=== PATIENT | female | born 1990 | race Hispanic/Latino ===

== ENCOUNTER 2019-01-01 03:28 | Observation (INO) | payer OTHER, SELFPAY ==
[2019-01-01 04:24] LABS: ALT (SGPT) 26 U/L (8-55); AST (SGOT) 35 U/L (5-34); Acetaminophen Less than 6.0 mcg/mL (10.0-30.0); Albumin 3.8 g/dL (3.5-5.0); Alcohol 66 mg/dL (Less than 10); Alkaline Phosphatase 94 U/L (40-150); Anion Gap 11 mmol/L (10-20); BUN (Urea Nitrogen) Less than 4 mg/dL (7.0-18.7); Bilirubin, Total 0.3 mg/dL (0.2-1.2); Calc. Creatinine Clearance 0 mL/min (70-130); Calcium 8.4 mg/dL (7.8-10.44); Carbon Dioxide 31 mmol/L (22-29); Chloride 103 mmol/L (98-107); Estimated GFR-MDRD Greater than 90; Globulin 2.5 g/dL (2.4-3.5); Glucose 149 mg/dL (70-105); Protein, Total 6.3 g/dL (6.0-8.3); Salicylate Less than 8.0 mg/dL (15.0-30.0); Sodium 142 mmol/L (136-145)
[2019-01-01 05:00] LABS: Bilirubin Negative (Negative); Blood, Urine Negative (Negative); Clarity Clear (Clear); Glucose, Urine (Dipstick) 500 mg/dL (Negative); Leukocyte Negative Leu/uL (Negative); Nitrite Negative (Negative); Protein, Urine (Dipstick) Negative (Neg-Trace); Urobilinogen Normal mg/dL (Less than 2)
[2019-01-01] MEDS ORDERED: Potassium Chloride 20 MEQ TAB ONE (05:00)
[2019-01-01 05:11] LABS: Amphetamine Not Detected (NotDetected); Barbiturates Screen Not Detected (NotDetected); Benzodiazepine Screen Not Detected (NotDetected); Cocaine Metabolite Screen Not Detected (NotDetected); Medtox Control Line Valid? VALID (VALID); Medtox Reader # READER 1; Methadone Not Detected (NotDetected); Methamphetamine Not Detected (NotDetected); Opiate Screen Not Detected (NotDetected); Oxycodone Screen Not Detected (NotDetected); Phencyclidine (PCP) Not Detected (NotDetected); THC/Cannabinoid Screen Not Detected (NotDetected); Tricyclic Screen Detected (NotDetected)
[2019-01-01 10:10] VITALS: BMI 26.3
[2019-01-01] MEDS: Multivitamins, Adult 10 ML, Thiamine HCl 100 MG, Folic Acid 1 MG in Dextrose 5 %-0.45 %... IV SCH (10:57)
[2019-01-01 12:06] LABS: #Lymphocytes 1.2 thou/uL (1.20-3.40); #Monocytes 0.3 thou/uL (0.11-0.59); #Neutrophils 2.1 thou/uL (1.40-6.50); %Basophils 0.8 % (0.0-1.0); %Eosinophils 0.8 % (0.0-10.0); %Monocytes 7.6 % (0.0-10.0); %Neutrophils 57.8 % (42.0-75.0); Hemoglobin 13.8 g/dL (12.0-16.0); Mean Corpuscular HGB CONC 34.1 g/dL (32.0-36.0); Mean Corpuscular Hemoglobin 35.2 pg (27.0-31.0); Platelet Count 135 thou/uL (130-400); RBC Distribution Width 12.1 % (11.5-14.5); Red Blood Cell (RBC) Count 3.91 mill/uL (4.20-5.40); White Blood Cell (WBC) Count 3.7 thou/uL (4.8-10.8)
[2019-01-01] MEDS: 1/2 NS w/KCL 20 mEq 1,000 ML IV SCH ×2 (12:09→19:55)
[2019-01-01 12:39] LABS: Anion Gap 9 mmol/L (10-20); BUN (Urea Nitrogen) Less than 4 mg/dL (7.0-18.7); Calc. Creatinine Clearance 135 mL/min (70-130); Calcium 8.1 mg/dL (7.8-10.44); Carbon Dioxide 27 mmol/L (22-29); Chloride 106 mmol/L (98-107); Estimated GFR-MDRD Greater than 90; Glucose 81 mg/dL (70-105); Magnesium 1.6 mg/dL (1.6-2.6); Potassium 3.9 mmol/L (3.5-5.1); Sodium 138 mmol/L (136-145)
[2019-01-01] MEDS ORDERED: Ondansetron ODT 4 MG TAB PO PRN (12:55)
[2019-01-01] MEDS ORDERED: Ondansetron PF 4 MG/2 ML Vial IVP PRN (12:55)
--- NOTE | 2019-01-01 14:40 | HP ---
PRIMARY CARE PHYSICIAN: None. CHIEF COMPLAINT: Overdose. HISTORY OF PRESENT ILLNESS: Ms. Sutton is a 28-year-old female, who has no past medical history, who presented to [facility] after being transferred to an outside [place] [facility] after she ingested 22 cyclobenzaprine 10 mg approximately 15 to 20 minutes prior to arriving late last night. She states that she was just trying to sleep. She had denied any fever, chills, any headache, blurred vision, dizziness, any chest pain, palpitations, shortness of breath, abdominal pain, nausea, or vomiting. She did report drowsiness and some lethargy, however, otherwise no further complaints. Poison Control was also consulted late last night and the patient was given 100 mg of activated charcoal, 1 L of normal saline, and 3 amps of bicarb along with maintenance fluids of 100 mL an hour of D5 with KCl. Poison Control recommended monitoring the patient for tachycardia, hypotension, possible delusions and also possible hallucinations. It was also recommended to watch for prolonged QRS and possible seizures. The patient's lab work indicated that the potassium had also dropped to 3.0, however, repeat had normalized at 3.9. Her drug screen detected tricyclics and a plasma alcohol level of initial 163 and this had trended down to 66 earlier this morning. Her other lab work was essentially normal and a consult was placed for [facility] for further evaluation. The patient reports going through a stressful time in her life and for the past month has had conflicts with several people, however, had no intention on harming herself and that she had taken the pills just to try to sleep. REVIEW OF SYSTEMS: All other systems reviewed and found to be negative unless mentioned in the HPI. PAST MEDICAL HISTORY: None. PAST SURGICAL HISTORY: None. PAST PSYCHIATRIC HISTORY: None. SOCIAL HISTORY: The patient reports drinking socially. She also uses tobacco and states that she smokes about a half pack when she is drinking alcohol. She had also denied any further illicit drug use. KNOWN ALLERGIES: No known drug allergies. CURRENT HOME MEDICATIONS: None. PHYSICAL EXAMINATION: VITAL SIGNS: BP 106/57, pulse 78, respirations 16, temperature 98.5, O2 saturation 98% on room air. GENERAL: The patient is calm, awake, alert, and oriented x3. She appears drowsy and some mild lethargy. She is lying comfortably in bed with her boyfriend at her side and appears in no acute distress at this time. HEENT: Atraumatic and normocephalic. Pupils are round and reactive to light. Extraocular muscles are intact. Moist mucous membranes noted. NECK: Soft and supple. Trachea is midline. CARDIOVASCULAR: Positive S1 and S2. Regular rate and rhythm. No murmur auscultated. RESPIRATORY: Clear to auscultation bilaterally. No wheezes, rales, or rhonchi. ABDOMEN: Soft and nontender. Bowel sounds present. MUSCULOSKELETAL: Strength 5+ bilaterally in upper and lower extremities. Moves all extremities equal. No edema noted. NEUROLOGIC: Cranial nerves 2 through 12 grossly intact. No focal deficits noted. Speech intact and normal. Gait not assessed. SKIN: Warm, dry, and intact. No rashes. No ulceration noted. PSYCHIATRIC: Good mood and affect. However, the patient appears quite drowsy at times. LABORATORY DATA: WBC 3.7, RBC 3.91, hemoglobin 13.8, platelet 135. Sodium 138, potassium 3.9, anion gap 9, BUN less than 4, creatinine 0.74, estimated GFR greater than 90, glucose 81, calcium 8.1, magnesium 1.6. TSH 2.6203. Urinalysis showed 500 glucose, otherwise unremarkable. Toxicology screen early this morning detected tricyclics with a plasma alcohol of 66. DIAGNOSTIC IMAGING: None. ASSESSMENT AND PLAN: 1. Overdose on cyclobenzaprine. She had received proper treatment with activated charcoal, 1 L of normal saline, and 3 amps of bicarb along with maintenance fluids of D5 with KCl. Poison Control was also consulted by the [place] [facility], which had recommended to monitor the patient for tachycardia, hypotension, possible delusions and/or hallucinations along with any further EKG changes with prolonged QRS and possible seizures. The patient appears to be slightly drowsy and lethargic at times. She will be placed on suicidal precautions along with a sitter. A consult was placed for [facility] who will possibly come and meet with the patient in the morning. 2. Deep venous thrombosis and gastrointestinal prophylaxis. CODE STATUS: Full code. DISPOSITION: Pending further workup and clinical findings, the patient will need a further evaluation from [facility] for a proper disposition. Job ID: [id number]
[2019-01-02 05:31] LABS: #Eosinphils 0.1 thou/uL (0.0-0.7); #Lymphocytes 1.9 thou/uL (1.20-3.40); #Monocytes 0.3 thou/uL (0.11-0.59); %Basophils 0.6 % (0.0-1.0); %Eosinophils 1.5 % (0.0-10.0); %Lymphocytes 35.7 % (21.0-51.0); %Monocytes 6.1 % (0.0-10.0); %Neutrophils 56.1 % (42.0-75.0); Mean Corpuscular HGB CONC 34.3 g/dL (32.0-36.0); Mean Corpuscular Hemoglobin 35.9 pg (27.0-31.0); Mean Platelet Volume 8.9 fL (7.4-10.4); Platelet Count 122 thou/uL (130-400); RBC Distribution Width 12.1 % (11.5-14.5); Red Blood Cell (RBC) Count 3.89 mill/uL (4.20-5.40); White Blood Cell (WBC) Count 5.3 thou/uL (4.8-10.8)
[2019-01-02 05:49] LABS: Anion Gap 11 mmol/L (10-20); BUN (Urea Nitrogen) 4 mg/dL (7.0-18.7); Calc. Creatinine Clearance 172 mL/min (70-130); Calcium 9.1 mg/dL (7.8-10.44); Carbon Dioxide 23 mmol/L (22-29); Chloride 106 mmol/L (98-107); Estimated GFR-MDRD Greater than 90; Glucose 88 mg/dL (70-105); Potassium 4.1 mmol/L (3.5-5.1); Sodium 136 mmol/L (136-145)
[2019-01-02] MEDS: Multivitamins, Adult 10 ML, Thiamine HCl 100 MG, Folic Acid 1 MG in Dextrose 5 %-0.45 %... IV SCH (10:03)
[2019-01-02 11:57] VITALS: BP 114/69; TEMP 98.3
--- NOTE | 2019-01-02 12:10 | PDOC.HOSPP ---
- Subjective Encounter Date: 01/02/19 Encounter Time: 09:00 Subjective: Patient seen and examined for OD. No SOB/palpitations. No new complaints. No overnight events - Objective Vital Signs & Weight: Vital Signs (12 hours) Temp Pulse Resp BP Pulse Ox 01/02/19 11:27 98.3 F 71 14 114/69 98 01/02/19 07:36 97.6 F 73 14 120/79 98 01/02/19 04:21 97.6 F 64 15 117/71 97 Weight Weight 163 lb 1.6 oz I&O: 01/01/19 01/02/19 01/03/19 06:59 06:59 06:59 Intake Total 2210 Balance 2210 Result Diagrams: 01/02/19 04:33 01/02/19 04:33 EKG Reviewed by me: Yes (Tele SR, QT 406) Hospitalist ROS - Review of Systems Respiratory: denies: cough, dry, shortness of breath, hemoptysis, SOB with excertion, pleuritic pain, sputum, wheezing, other Cardiovascular: denies: chest pain, palpitations, orthopnea, paroxysmal noc. dyspnea, edema, light headedness, other Gastrointestinal: denies: nausea, vomitting, abdominal pain, diarrhea, constipation, melena, hematochezia, other - Medication Medications: Active Medications Generic Name Dose Route Start Last Admin Trade Name Freq PRN Reason Stop Dose Admin Multivitamins 10 ml/ Thiamine 1,011.2 mls @ 0 mls/hr 01/01/19 09:00 01/02/19 10:03 HCl 100 mg/ Folic Acid 1 mg/ IV 1,011.2 mls Dextrose/Sodium Chloride DAILY YVETTE Administration Sodium Chloride 10 ml 01/01/19 21:00 01/02/19 10:04 Flush - Normal Saline IVF 10 ml Q12HR YVETTE Administration - Exam General Appearance: NAD Heart: RRR, no rubs Respiratory: CTAB, no ronchi Gastrointestinal: soft, non-tender, normal bowel sounds Extremities: no cyanosis, no edema Neurological: no new deficit Hosp A/P (1) Drug overdose Code(s): T50.901A - POISONING BY UNSP DRUG/MEDS/BIOL SUBST, ACCIDENTAL, INIT Status: Acute (2) Alcohol intoxication Status: Acute (3) Hypokalemia Code(s): E87.6 - HYPOKALEMIA Status: Acute (4) Dehydration Code(s): E86.0 - DEHYDRATION Status: Acute (5) Thrombocytopenia Code(s): D69.6 - THROMBOCYTOPENIA, UNSPECIFIED Status: Acute (6) Leucopenia Code(s): D72.819 - DECREASED WHITE BLOOD CELL COUNT, UNSPECIFIED Status: Acute - Plan plan discussed w/ family Flexeril overdose MR eval Stable for discharge Sitter Cont to monitor Repeat CBC as outpt
--- NOTE | 2019-01-02 14:41 | DIS ---
DATE OF ADMISSION: 01/01/2019 DATE OF DISCHARGE: 01/02/2019 DISCHARGE DISPOSITION: Home. FOLLOWUP: Follow up with primary care physician in 1 week. The patient does not have a primary care physician at this time. She was advised to follow up with [facility]. Lifetime modification including alcohol cessation was emphasized. ALLERGIES: NO KNOWN DRUG ALLERGIES. DISCHARGE MEDICATION: None. BRIEF HOSPITAL COURSE: The patient is a 28-year-old female, who presented to the emergency room with overdose. She apparently ingested 20 to 10 mg Flexeril tablets while she was intoxicated with alcohol. Please refer to the history and physical for further details. The patient was admitted to the telemetry unit with a diagnosis of cyclobenzaprine overdose. She received 3 amps of bicarbonate along with IV fluids per poison Control recommendation. QRS interval has significantly improved. Mentation is back to baseline. She has been cleared by [facility] for discharge. FINAL DIAGNOSES: 1. Drug overdose with cyclobenzaprine. 2. Alcohol intoxication. Plasma alcohol level in the emergency room was 163. 3. Hypokalemia with potassium of 3.0. 4. Dehydration. 5. Mild thrombocytopenia with platelet of 122 on the day of discharge. 6. Macrocytosis. The patient was advised to take vitamin B12, folic acid, and multivitamin [id number]. 7. Leukopenia on admission, improved. PLAN: Plan of care was discussed with the patient in detail. She stated understanding. Job ID: [id number]
--- NOTE | 2019-01-03 16:52 | EKG ---
Test Reason : Blood Pressure : / mmHG Vent. Rate : 074 BPM Atrial Rate : 074 BPM P-R Int : 136 ms QRS Dur : 102 ms QT Int : 394 ms P-R-T Axes : 061 077 048 degrees QTc Int : 437 ms Normal sinus rhythm Normal ECG Confirmed by BELLA FAY ([id number]) on 01/03/2019 4:51:42 PM Referred By: DARRYN Confirmed By:BELLA FAY
--- NOTE | 2019-01-03 17:08 | EKG ---
Test Reason : Blood Pressure : / mmHG Vent. Rate : 061 BPM Atrial Rate : 061 BPM P-R Int : 130 ms QRS Dur : 104 ms QT Int : 406 ms P-R-T Axes : 045 087 061 degrees QTc Int : 408 ms Normal sinus rhythm Normal ECG Confirmed by BELLA FAY ([id number]) on 01/03/2019 5:08:09 PM Referred By: DARRYN Confirmed By:BELLA FAY
--- NOTE | 2019-01-06 00:26 | EKG ---
Test Reason : Blood Pressure : / mmHG Vent. Rate : 108 BPM Atrial Rate : 108 BPM P-R Int : 138 ms QRS Dur : 096 ms QT Int : 356 ms P-R-T Axes : 040 058 039 degrees QTc Int : 477 ms Sinus tachycardia Longed QTc Otherwise normal ECG Confirmed by CANDICE WALTERS ([id number]), clinical editor CARY LEMON ([id number]) on 01/06/2019 12:26:30 AM Referred By: Confirmed By:CANDICE WALTERS
== END 2019-01-02 15:55 | disposition home or self-care (01) ==
LOC: ERS 03:28 → ERHOLD 04:56 → 2SW 09:41
PROVIDERS: ADMIT Hospitalist; ATTEND Hospitalist
DX: T48.1X1A Poisoning by skeletal muscle relaxants [neuromuscular blocking agents], accidental (unintentional), initial encounter (principal); R40.0 Somnolence; R53.83 Other fatigue; F17.210 Nicotine dependence, cigarettes, uncomplicated; F10.129 Alcohol abuse with intoxication, unspecified; E87.6 Hypokalemia; E86.0 Dehydration; D69.6 Thrombocytopenia, unspecified; D75.89 Other specified diseases of blood and blood-forming organs; D72.819 Decreased white blood cell count, unspecified; Y90.6 Blood alcohol level of 120-199 mg/100 ml
CPT/HCPCS: 36415; 80048; 80306; 80307; 81003; 83735; 84443; 85025; 93005; 93010; 96365; 96366; 96367; G0378; J3411; J3480; J7042